=== PATIENT | female | born 1945 | race Caucasian/White ===

== ENCOUNTER → 2016-08-27 | Outpatient (CLI) | payer OTHER ==
[~2016-08-27] MED LIST: ADULT LOW STREN81 M2 PO; ADVAIR 250/501 DISK IH; AMITRIPTYLINE H50 M1 NG; AMLODIPINE BESYL5 MG PO; ANTIVERT25 MG PO; APRESOLINE10 MG PO; BONINE25 MG PO; CEFTIN500 MG PO; CENTRUM SILVER1 EAC3 PO; CEPHALEXIN500 MG PO; CILOSTAZOL50 MG PO; CIPROFLOXACIN500 M1 PO; CLOPIDOGREL75 MG PO; COZAAR50 MG PO; CRANBERRY405 MG PO; CRESTOR20 MG PO; ENALAPRIL MALEA10 MG PO; FAMOTIDINE20 MG PO; FEOSOL325 MG PO; FERROUS SULFAT325 MG PO; FLEXERIL5 MG PO; GABAPENTIN100 MG PO; GEMFIBROZIL600 MG PO; GENTAMICIN100 MG/100 IM; GLUCOPHAGE500 MG PO; HEPARIN SO5000 UNITS SC; HYDROCODON-ACE1 EAC7 PO; HYDROCODON-ACE1 EACH PO; INCRUSE ELLI62.5 MCG IH; JANUVIA100 MG PO; K-DUR20 MEQ PO; KEFLEX500 MG PO; LANTUS 10100 UNITS/ SC; LEVAMIR PO; LEVEMIR FL100 UNIT/1 SC; LEVEMIR FL100 UNITS/ SC; LISINOPRIL10 MG PO; LOSARTAN POTASS50 MG PO; LYRICA100 MG PO; LYRICA50 MG PO; LYRICA75 MG PO; MECLIZINE HCL25 MG PO; METFORMIN HCL1000 MG PO; METFORMIN HCL500 M4 PO; METFORMIN HCL500 MG PO; NEURONTIN100 MG PO; NICOTINE PATCH1 EAC1 TD; NORCO 5/3251 TABLET PO; NORVASC5 MG PO; NOVOLOG (UNITS1 UNIT SC; NOVOLOG PE100 UNITS/ SC; ONE-A-DAY MAXI1 EACH PO; PANTOPRAZOLE SO40 MG PO; PLAVIX75 MG PO; POTASSIUM CHLO20 ME1 PO; PRAVACHOL20 MG PO; PRAVACHOL40 MG PO; PRAVASTATIN SOD40 MG PO; PROMETHAZINE HC25 M1 PO; PROMETHAZINE HC25 MG PR; RANITIDINE HCL150 MG PO; SENNA-TIME S T1 EACH PO; SUPRAX400 MG PO; TRICOR48 MG PO; TYLENOL 8 HOUR650 MG PO; TYLENOL REGULA325 MG PO; Tricor PO; ULTRAM50 MG PO; VENTOLIN HFA18 GM IH; VICODIN,LORT1 TABLET PO; VITAMIN D32000 UNIT PO; WELLBUTRIN SR150 MG PO; ZOCOR5 MG PO; ZOFRAN4 MG PO; ZOLOFT50 MG PO; [UNRECOGNIZED DRUG - REMARK]
== END ==
LOC: MRI 10:29 → RAD 11:00
DX: M86.671 Other chronic osteomyelitis, right ankle and foot (principal)
CPT/HCPCS: 73721

== ENCOUNTER 2016-09-09 17:30 | Inpatient (IN) | payer OTHER ==
[~2016-09-09] VITALS: Ht 167.6 cm; Wt 80.0 kg
[2016-09-09 18:47] LABS: ADD MIUA? YES; BILIRUBIN NEGATIVE; BLOOD NEGATIVE; COLOR YELLOW ((YELLOW)); GLUCOSE (STRIP) NEGATIVE; KETONES NEGATIVE; LEUKOCYTES SMALL; NITRITE POSITIVE; PH, URINE 5.5 (5-8); PROTEIN (STRIP) NEGATIVE; SPECIFIC GRAVITY 1.016 (1.000-1.030); UROBILINOGEN 0.2 MG/DL (0.2-1.0)
[2016-09-09 19:00] LABS: EOSINOPHIL (%) 2.7 % (0-5); EOSINOPHIL COUNT 0.3 K/uL (0-0.3); HEMATOCRIT 33.5 % (36.0-46.0); IMMATURE GRANULOCYTE (%) 0.2 % (0.0-0.7); IMMATURE GRANULOCYTE COUNT 0.2 K/uL; MCHC 32.2 G/DL (30.0-36.0); MCV 80.7 FL (83-99); MEAN PLAT.VOLUME 10.4 uM^3 (9.5-12.4); MONOCYTE COUNT 0.4 K/uL (0-0.8); NEUTROPHIL (%) 64.5 % (45-76); NEUTROPHIL COUNT 6.7 K/uL (1.8-6.4); PLATELET COUNT 309 K/uL (156-360); RBC DIS.WIDTH-CV 14.9 % (11.8-14.6); RBC DIS.WIDTH-SD 43.1 % (39-53); RED BLOOD COUNT 4.15 M/uL (3.80-5.20); WHITE BLOOD COUNT 10.4 K/uL (4.1-10.2)
[2016-09-09 19:09] LABS: CHLORIDE 108 mEq/L (99-109); POTASSIUM 4.1 mEq/L (3.7-5.4); SODIUM 141 mEq/L (136-147)
[2016-09-09 19:10] LABS: GLUCOSE 223 mg/dL (70-99)
[2016-09-09 19:12] LABS: ANION GAP 9 MEQ/L (2-14)
[2016-09-09 19:14] LABS: GFR ESTIMATE (CALCULATED) 58 mL/min/
[2016-09-09 19:15] LABS: UREA NITROGEN (BUN) 14 mg/dL (9-23)
[2016-09-09 19:21] LABS: TROP-I INTERPRETATION NEGATIVE; TROPONIN-I 0.01 ng/mL (0.0-0.30)
[2016-09-09 19:38] LABS: BACTERIA 3+ /HPF; CASTS NONE SEEN /LPF; CRYSTALS NONE SEEN; EPITHELIAL CELLS RARE /HPF; MUCUS RARE /LPF; RED BLOOD CELLS 0-5 /HPF (0-5); UCUL ADDED? NO; WHITE BLOOD CELLS 0-5 /HPF (0-5)
[2016-09-09] MEDS ORDERED: NOVOLOG PE100 UNITS/ SC (20:00)
[2016-09-09] MEDS ORDERED: PRINIVIL20 MG PO (20:05)
[2016-09-09] MEDS ORDERED: LASIX20 MG PO (20:06)
[2016-09-09 23:20] LABS: TOTAL BILIRUBIN 0.2 mg/dL (0.0-1.0)
[2016-09-09 23:21] LABS: ALKALINE PHOSPHATASE 85 IU/L (3-129)
[2016-09-09 23:24] LABS: DIRECT BILIRUBIN 0.1 mg/dL (0.0-0.3)
[2016-09-09 23:38] LABS: POINT-OF-CARE METER ID UU13113702
[2016-09-09 23:55] LABS: HDL CHOLESTEROL 22 MG/DL (Desirable>=50); LDL CHOLESTEROL 41 mg/dL (Desirable<100); NON-HDL CHOLESTEROL 75 mg/dL (Desirable<160); TOTAL CHOLESTEROL 97 mg/dL (Desirable<200); TRIGLYCERIDES 171 MG/DL (Normal: <150)
[2016-09-10 00:14] VITALS: BP 124/66
[2016-09-10 05:15] VITALS: BP 153/70
[2016-09-10 06:20] LABS: HEMATOCRIT 34.9 % (36.0-46.0); MCH 26.3 PG (29.0-34.0); MCHC 32.4 G/DL (30.0-36.0); MCV 81.2 FL (83-99); MEAN PLAT.VOLUME 10.9 uM^3 (9.5-12.4); PLATELET COUNT 283 K/uL (156-360); RBC DIS.WIDTH-CV 14.9 % (11.8-14.6); WHITE BLOOD COUNT 8.6 K/uL (4.1-10.2)
[2016-09-10 06:47] LABS: ANION GAP 10 MEQ/L (2-14); CHLORIDE 106 MEQ/L (99-109); GFR ESTIMATE (CALCULATED) > 59 mL/min/; GLUCOSE 149 mg/dL (70-99); POTASSIUM 3.8 MEQ/L (3.7-5.4); SAMPLE HEMOLYSIS CHECK 0; SAMPLE ICTERIC CHECK 0; SAMPLE LIPEMIA CHECK 0; SODIUM 140 MEQ/L (136-147); UREA NITROGEN (BUN) 12 mg/dL (9-23)
[2016-09-10 08:13] LABS: Estimated Average Glucose 189 mg/dL (70-123); HEMOGLOBIN A1c (GLYCOHEMOGLOB) 8.2 % HGB (Below 5.7)
[2016-09-10 09:08] VITALS: BP 156/67
[2016-09-10 11:45] VITALS: BP 136/69
[2016-09-10 12:22] LABS: POINT-OF-CARE METER ID UU14162513
[2016-09-10 16:35] VITALS: BP 136/63
[2016-09-10 18:14] LABS: POINT-OF-CARE METER ID UU13113700
[2016-09-10 20:00] VITALS: BP 144/70
[2016-09-11 01:59] VITALS: BP 154/67
[2016-09-11 04:59] VITALS: BP 159/76
[2016-09-11 06:23] LABS: BASOPHIL COUNT 0.1 K/uL (0-0.1); EOSINOPHIL (%) 2.7 % (0-5); EOSINOPHIL COUNT 0.2 K/uL (0-0.3); HEMATOCRIT 35.6 % (36.0-46.0); IMMATURE GRANULOCYTE (%) 0.2 % (0.0-0.7); LYMPHOCYTE COUNT 2.7 K/uL (1.0-2.8); MCH 26.1 PG (29.0-34.0); MCV 81.5 FL (83-99); MEAN PLAT.VOLUME 10.6 uM^3 (9.5-12.4); MONOCYTE (%) 3.4 % (3-12); MONOCYTE COUNT 0.3 K/uL (0-0.8); NEUTROPHIL (%) 60.5 % (45-76); NEUTROPHIL COUNT 4.9 K/uL (1.8-6.4); PLATELET COUNT 299 K/uL (156-360); RBC DIS.WIDTH-CV 14.9 % (11.8-14.6); RBC DIS.WIDTH-SD 44.1 % (39-53); RED BLOOD COUNT 4.37 M/uL (3.80-5.20); WHITE BLOOD COUNT 8.2 K/uL (4.1-10.2)
[2016-09-11 06:50] LABS: ANION GAP 11 MEQ/L (2-14); CHLORIDE 105 MEQ/L (99-109); GFR ESTIMATE (CALCULATED) > 59 mL/min/; GLUCOSE 134 mg/dL (70-99); SAMPLE HEMOLYSIS CHECK 0; SAMPLE ICTERIC CHECK 0; SAMPLE LIPEMIA CHECK 0; SODIUM 139 MEQ/L (136-147); UREA NITROGEN (BUN) 10 mg/dL (9-23)
[2016-09-11 08:00] VITALS: BP 137/74
[2016-09-11 16:00] VITALS: BP 132/63
[2016-09-11] MEDS ORDERED: KEFLEX500 MG PO (16:25)
[2016-09-11] MEDS ORDERED: VITAMIN B125000 MCG PO (16:46)
== END 2016-09-11 18:52 | DRG 312 ==
LOC: EME → EDBD 17:30 → EME 17:30 → EDOF 22:07 → 5WEST 22:07
PROVIDERS: Emergency Medicine; Hospitalist; Internal Medicine
DX: R55 Syncope and collapse (principal); N39.0 Urinary tract infection, site not specified; E11.319 Type 2 diabetes mellitus with unspecified diabetic retinopathy without macular edema; L89.510 Pressure ulcer of right ankle, unstageable; J44.9 Chronic obstructive pulmonary disease, unspecified; E11.65 Type 2 diabetes mellitus with hyperglycemia; I50.9 Heart failure, unspecified; I73.9 Peripheral vascular disease, unspecified; I10 Essential (primary) hypertension; E78.5 Hyperlipidemia, unspecified; M79.7 Fibromyalgia; R41.82 Altered mental status, unspecified; R53.1 Weakness; E53.8 Deficiency of other specified B group vitamins; F32.9 Major depressive disorder, single episode, unspecified; F41.9 Anxiety disorder, unspecified; I25.10 Atherosclerotic heart disease of native coronary artery without angina pectoris; Z95.5 Presence of coronary angioplasty implant and graft; Z99.3 Dependence on wheelchair; Z86.73 Personal history of transient ischemic attack (TIA), and cerebral infarction without residual deficits; Z95.1 Presence of aortocoronary bypass graft; Z90.49 Acquired absence of other specified parts of digestive tract; I25.2 Old myocardial infarction; Z87.891 Personal history of nicotine dependence
CPT/HCPCS: 70450; 70551; 74176; 80048; 80061; 80076; 81003; 82607; 82948; 83036; 84443; 84484; 85025; 85027; 93005; 94640; 94640 76; 94799; 95819; 99202; 99281; 99284; G0378; J0696; J1644; J1815; J2310; J3420; J7040; J7050

== ENCOUNTER 2016-10-02 14:42 | Observation (INO) | payer OTHER ==
[~2016-10-02] VITALS: Ht 167.6 cm; Wt 76.2 kg
[~2016-10-02 14:42] MED LIST changes: +LASIX20 MG PO; +PRINIVIL20 MG PO; +VITAMIN B125000 MCG PO
[2016-10-02 15:31] LABS: HEMATOCRIT 36.5 % (36.0-46.0); MCH 25.8 PG (29.0-34.0); MCHC 32.1 G/DL (30.0-36.0); MCV 80.6 FL (83-99); MEAN PLAT.VOLUME 10.4 uM^3 (9.5-12.4); PLATELET COUNT 331 K/uL (156-360); RBC DIS.WIDTH-CV 15.1 % (11.8-14.6); RBC DIS.WIDTH-SD 43.4 % (39-53); RED BLOOD COUNT 4.53 M/uL (3.80-5.20); WHITE BLOOD COUNT 9.1 K/uL (4.1-10.2)
[2016-10-02 15:39] LABS: CHLORIDE 108 mEq/L (99-109); POTASSIUM 3.7 mEq/L (3.7-5.4); SODIUM 144 mEq/L (136-147)
[2016-10-02 15:42] LABS: ANION GAP 13 MEQ/L (2-14)
[2016-10-02 15:43] LABS: GLUCOSE 107 mg/dL (70-99)
[2016-10-02 15:44] LABS: GFR ESTIMATE (CALCULATED) > 59 mL/min/
[2016-10-02 15:45] LABS: UREA NITROGEN (BUN) 18 mg/dL (9-23)
[2016-10-02 15:46] LABS: ADD MIUA? YES; BILIRUBIN NEGATIVE; BLOOD NEGATIVE; COLOR YELLOW ((YELLOW)); GLUCOSE (STRIP) NEGATIVE; KETONES NEGATIVE; LEUKOCYTES NEGATIVE; NITRITE NEGATIVE; PROTEIN (STRIP) NEGATIVE; SPECIFIC GRAVITY 1.016 (1.000-1.030); UROBILINOGEN 0.2 MG/DL (0.2-1.0)
[2016-10-02 15:51] LABS: TROP-I INTERPRETATION NEGATIVE; TROPONIN-I 0.03 ng/mL (0.0-0.30)
[2016-10-02 18:11] LABS: BACTERIA NONE SEEN /HPF; BUDDING YEAST 2+; EPITHELIAL CELLS RARE /HPF; HYALINE CASTS 0-5 /LPF; MUCUS TRACE /LPF; RED BLOOD CELLS 0-5 /HPF (0-5); UCUL ADDED? NO
[2016-10-02] MEDS ORDERED: VITAMIN B-12500 MC5 SL (21:35)
[2016-10-02] MEDS ORDERED: LYRICA75 MG PO (21:39)
[2016-10-02] MEDS ORDERED: EXTRA STRENGTH500 M1 PO (21:41)
[2016-10-02] MEDS ORDERED: MORGIDOX100 MG PO (21:42)
[2016-10-03 01:07] VITALS: BP 154/69
[2016-10-03 01:16] LABS: POINT-OF-CARE METER ID UU13113700
[2016-10-03 06:10] LABS: EOSINOPHIL (%) 2.2 % (0-5); EOSINOPHIL COUNT 0.2 K/uL (0-0.3); HEMATOCRIT 36.1 % (36.0-46.0); IMMATURE GRANULOCYTE (%) 0.1 % (0.0-0.7); LYMPHOCYTE COUNT 2.5 K/uL (1.0-2.8); MCH 25.2 PG (29.0-34.0); MCHC 31.6 G/DL (30.0-36.0); MCV 79.9 FL (83-99); MEAN PLAT.VOLUME 10.7 uM^3 (9.5-12.4); MONOCYTE (%) 4.3 % (3-12); MONOCYTE COUNT 0.3 K/uL (0-0.8); NEUTROPHIL (%) 58.8 % (45-76); NEUTROPHIL COUNT 4.3 K/uL (1.8-6.4); PLATELET COUNT 308 K/uL (156-360); RBC DIS.WIDTH-CV 14.9 % (11.8-14.6); RBC DIS.WIDTH-SD 42.9 % (39-53); RED BLOOD COUNT 4.52 M/uL (3.80-5.20); WHITE BLOOD COUNT 7.4 K/uL (4.1-10.2)
[2016-10-03 06:25] LABS: ANION GAP 11 MEQ/L (2-14); CHLORIDE 107 MEQ/L (99-109); GFR ESTIMATE (CALCULATED) > 59 mL/min/; GLUCOSE 139 mg/dL (70-99); POTASSIUM 3.6 MEQ/L (3.7-5.4); SAMPLE HEMOLYSIS CHECK 0; SAMPLE ICTERIC CHECK 0; SAMPLE LIPEMIA CHECK 0; SODIUM 141 MEQ/L (136-147); UREA NITROGEN (BUN) 16 mg/dL (9-23)
[2016-10-03 07:25] VITALS: BP 142/68
[2016-10-03 10:57] VITALS: BP 134/62
[2016-10-03 13:04] LABS: POINT-OF-CARE METER ID UU13113831
== END 2016-10-03 13:49 ==
LOC: EME 14:42 → EDOF 22:41 → 5WEST 23:50
PROVIDERS: Emergency Medicine; Hospitalist
DX: L03.115 Cellulitis of right lower limb (principal); R53.83 Other fatigue; J44.9 Chronic obstructive pulmonary disease, unspecified; I11.0 Hypertensive heart disease with heart failure; I50.9 Heart failure, unspecified; G90.50 Complex regional pain syndrome I, unspecified; E11.9 Type 2 diabetes mellitus without complications; I25.10 Atherosclerotic heart disease of native coronary artery without angina pectoris; M79.7 Fibromyalgia; F31.9 Bipolar disorder, unspecified; Z95.5 Presence of coronary angioplasty implant and graft; Z86.73 Personal history of transient ischemic attack (TIA), and cerebral infarction without residual deficits; Z87.891 Personal history of nicotine dependence
CPT/HCPCS: 70450; 71010; 73610; 80048; 80048 91; 81003; 82948; 84484; 85025; 85027; 93005; 93971; 99281; 99285; G0378; J1644; J1815

== ENCOUNTER 2017-12-02 21:58 | Inpatient (IN) | payer OTHER ==
[~2017-12-02] VITALS: Ht 167.6 cm; Wt 78.0 kg
[~2017-12-02 21:58] MED LIST changes: +EXTRA STRENGTH500 M1 PO; +MORGIDOX100 MG PO; +VITAMIN B-12500 MC5 SL
[2017-12-02 22:59] LABS: BASOPHIL (%) 0.6 % (0-1); BASOPHIL COUNT 0.1 K/uL (0-0.1); EOSINOPHIL (%) 2.2 % (0-5); EOSINOPHIL COUNT 0.3 K/uL (0-0.3); HEMATOCRIT 33.8 % (36.0-46.0); IMMATURE GRANULOCYTE (%) 0.3 % (0.0-0.7); LYMPHOCYTE (%) 38.2 % (15-42); LYMPHOCYTE COUNT 4.5 K/uL (1.0-2.8); MCH 25.8 PG (29.0-34.0); MCHC 32.5 G/DL (30.0-36.0); MCV 79.3 FL (83-99); MONOCYTE (%) 3.9 % (3-12); MONOCYTE COUNT 0.5 K/uL (0-0.8); NEUTROPHIL (%) 54.8 % (45-76); NEUTROPHIL COUNT 6.5 K/uL (1.8-6.4); PLATELET COUNT 375 K/uL (156-360); RBC DIS.WIDTH-CV 15.1 % (11.8-14.6); RBC DIS.WIDTH-SD 43.2 % (39-53); RED BLOOD COUNT 4.26 M/uL (3.80-5.20); WHITE BLOOD COUNT 11.8 K/uL (4.1-10.2)
[2017-12-02 23:08] LABS: PTT 29.7 SEC (25-37)
[2017-12-02 23:11] LABS: CHLORIDE 106 mEq/L (99-109); POTASSIUM 4.2 mEq/L (3.7-5.4); SODIUM 139 mEq/L (136-147)
[2017-12-02 23:12] LABS: GLUCOSE 165 mg/dL (70-99)
[2017-12-02 23:16] LABS: CREATININE 0.8 mg/dL (0.6-1.3); GFR ESTIMATE (CALCULATED) > 59 mL/min/
[2017-12-02 23:17] LABS: UREA NITROGEN (BUN) 17 mg/dL (9-23)
[2017-12-02 23:20] LABS: TROP-I INTERPRETATION NEGATIVE; TROPONIN-I 0.02 ng/mL (0.0-0.30)
[2017-12-02] MEDS ORDERED: NOVOLIN,HU100 UNITS1 SC (23:57)
[2017-12-02] MEDS ORDERED: NOVOLIN N100 UNITS/ SC (23:58)
[2017-12-02] MEDS ORDERED: GABAPENTIN100 MG PO (23:59)
[2017-12-03] MEDS ORDERED: TRAMADOL HCL50 MG PO
[2017-12-03 00:55] LABS: HDL CHOLESTEROL 28 MG/DL (Desirable>=50); LDL CHOLESTEROL 107 mg/dL (Desirable<100); NON-HDL CHOLESTEROL 150 mg/dL (Desirable<160); TOTAL CHOLESTEROL 178 mg/dL (Desirable<200); TRIGLYCERIDES 217 MG/DL (Normal: <150)
[2017-12-03 02:20] VITALS: BP 136/62
[2017-12-03 07:08] VITALS: BP 137/64
[2017-12-03 09:28] LABS: HEMOGLOBIN A1c (GLYCOHEMOGLOB) 8.4 % (Below 5.7)
[2017-12-03 11:30] VITALS: BP 175/73
[2017-12-03 16:00] VITALS: BP 138/64
[2017-12-03 19:27] VITALS: BP 153/68
[2017-12-04 00:12] VITALS: BP 175/79
[2017-12-04 03:57] VITALS: BP 146/66
[2017-12-04 07:25] VITALS: BP 142/75
[2017-12-04 12:31] VITALS: BP 134/64
[2017-12-04 15:38] VITALS: BP 135/63
[2017-12-04 19:35] VITALS: BP 159/74
[2017-12-05 00:02] VITALS: BP 144/69
[2017-12-05 03:36] VITALS: BP 145/60; BP 173/79
[2017-12-05 07:10] VITALS: BP 153/65
[2017-12-05 16:49] VITALS: BP 135/69
[2017-12-05 23:30] VITALS: BP 146/59
[2017-12-06 07:55] VITALS: BP 195/86
[2017-12-06 15:21] VITALS: BP 111/59
[2017-12-06] MEDS ORDERED: AMOX TR-K CLV1 EAC4 PO (15:27)
[2017-12-06] MEDS ORDERED: PREDNISONE10 MG PO (15:29)
[2017-12-06] MEDS ORDERED: TRAMADOL HCL50 MG PO (15:31)
[2017-12-06 16:00] VITALS: BP 111/59
== END 2017-12-06 18:07 | DRG 884 ==
LOC: EME 21:58 → 5SOUTH 12-03 00:40 → EDOF 12-03 00:40 → ENRESERV 12-03 00:51 → 5SOUTH 12-03 02:06 → ENPENDDIS 12-06 15:33 → 5SOUTH 12-06 18:07
PROVIDERS: Emergency Medicine; Internal Medicine
DX: R40.4 Transient alteration of awareness (principal); J44.1 Chronic obstructive pulmonary disease with (acute) exacerbation; D64.9 Anemia, unspecified; E11.3599 Type 2 diabetes mellitus with proliferative diabetic retinopathy without macular edema, unspecified eye; E11.51 Type 2 diabetes mellitus with diabetic peripheral angiopathy without gangrene; I11.0 Hypertensive heart disease with heart failure; I50.9 Heart failure, unspecified; M79.7 Fibromyalgia; I69.351 Hemiplegia and hemiparesis following cerebral infarction affecting right dominant side; F03.90 Unspecified dementia, unspecified severity, without behavioral disturbance, psychotic disturbance, mood disturbance, and anxiety; I25.10 Atherosclerotic heart disease of native coronary artery without angina pectoris; R21 Rash and other nonspecific skin eruption; K21.9 Gastro-esophageal reflux disease without esophagitis; E78.5 Hyperlipidemia, unspecified; F32.9 Major depressive disorder, single episode, unspecified; F41.9 Anxiety disorder, unspecified; F10.11 Alcohol abuse, in remission; F17.210 Nicotine dependence, cigarettes, uncomplicated; Z82.0 Family history of epilepsy and other diseases of the nervous system; Z82.49 Family history of ischemic heart disease and other diseases of the circulatory system; Z98.61 Coronary angioplasty status; Z99.3 Dependence on wheelchair
CPT/HCPCS: 70450; 71045; 80048; 80061; 81003; 82948; 83036; 83605; 84484; 85025; 85610; 85730; 87040; 94640; 99202; 99281; 99284; J1644; J1815; J1956; J7512

== ENCOUNTER 2018-01-12 18:37 | Emergency (ER) | payer OTHER ==
[~2018-01-12] VITALS: Ht 172.7 cm; Wt 75.7 kg
[~2018-01-12 18:37] MED LIST changes: +AMOX TR-K CLV1 EAC4 PO; +NOVOLIN N100 UNITS/ SC; +NOVOLIN,HU100 UNITS1 SC; +PREDNISONE10 MG PO; +TRAMADOL HCL50 MG PO
[2018-01-12 20:13] LABS: HEMATOCRIT 33.6 % (36.0-46.0); HEMOGLOBIN 10.8 G/DL (11.9-15.5); MCH 25.8 PG (29.0-34.0); MCHC 32.1 G/DL (30.0-36.0); MCV 80.4 FL (83-99); PLATELET COUNT 311 K/uL (156-360); RBC DIS.WIDTH-CV 14.9 % (11.8-14.6); RBC DIS.WIDTH-SD 43.3 % (39-53); RED BLOOD COUNT 4.18 M/uL (3.80-5.20); WHITE BLOOD COUNT 10.4 K/uL (4.1-10.2)
[2018-01-12 20:22] LABS: ALBUMIN 3.5 g/dL (3.2-4.8); CHLORIDE 103 mEq/L (99-109); POTASSIUM 3.8 mEq/L (3.7-5.4); SODIUM 136 mEq/L (136-147)
[2018-01-12 20:24] LABS: GLUCOSE 178 mg/dL (70-99); TOTAL PROTEIN 6.5 g/dL (6.4-8.3)
[2018-01-12 20:26] LABS: TOTAL BILIRUBIN 0.5 mg/dL (0.0-1.0)
[2018-01-12 20:27] LABS: ALKALINE PHOSPHATASE 100 IU/L (3-129)
[2018-01-12 20:28] LABS: CREATININE 0.9 mg/dL (0.6-1.3); GFR ESTIMATE (CALCULATED) > 59 mL/min/
[2018-01-12 20:29] LABS: AST (GOT) 16 IU/L (2-34); UREA NITROGEN (BUN) 15 mg/dL (9-23)
[2018-01-12 20:31] LABS: ALT (GPT) 13 IU/L (3-49)
[2018-01-12 20:33] LABS: TROP-I INTERPRETATION NEGATIVE; TROPONIN-I 0.07 ng/mL (0.0-0.30)
[2018-01-12 21:27] LABS: APPEARANCE SL.HAZY ((CLEAR)); BILIRUBIN NEGATIVE; BLOOD NEGATIVE; COLOR YELLOW ((YELLOW)); GLUCOSE (STRIP) NEGATIVE; KETONES 5; LEUKOCYTES TRACE; NITRITE POSITIVE; PROTEIN (STRIP) NEGATIVE; SPECIFIC GRAVITY 1.021 (1.000-1.030)
[2018-01-12 21:34] LABS: BACTERIA 3+ /HPF; EPITHELIAL CELLS RARE /HPF; MUCUS 3+ /LPF; RED BLOOD CELLS 0-5 /HPF (0-5)
[2018-01-13 00:39] VITALS: BP 125/78
== END 2018-01-13 00:45 ==
LOC: EME 18:37
PROVIDERS: Emergency Medicine
DX: I63.9 Cerebral infarction, unspecified (principal); R82.90 Unspecified abnormal findings in urine; I69.351 Hemiplegia and hemiparesis following cerebral infarction affecting right dominant side; F03.90 Unspecified dementia, unspecified severity, without behavioral disturbance, psychotic disturbance, mood disturbance, and anxiety; Z87.440 Personal history of urinary (tract) infections; E11.9 Type 2 diabetes mellitus without complications; Z79.4 Long term (current) use of insulin; I11.0 Hypertensive heart disease with heart failure; I50.9 Heart failure, unspecified; J44.9 Chronic obstructive pulmonary disease, unspecified; K21.9 Gastro-esophageal reflux disease without esophagitis; F41.9 Anxiety disorder, unspecified; F32.9 Major depressive disorder, single episode, unspecified; M79.7 Fibromyalgia; Z95.5 Presence of coronary angioplasty implant and graft; Z88.5 Allergy status to narcotic agent; Z88.2 Allergy status to sulfonamides
CPT/HCPCS: 70450; 71045; 80053; 81003; 82948; 83605; 84484; 85027; 87077; 87086; 93005; 99281; 99285; J7030